=== PATIENT | male | born 1945 | race Caucasian/White ===

== ENCOUNTER → 2017-08-18 | Outpatient (CLI) | payer MEDICARE, OTHER ==
[~2017-08-18] MED LIST: REGADENOSON 0.4 MG/5 ML SYG ONE
--- NOTE | 2017-08-18 12:08 | CARRPT ---
DATE OF PROCEDURE: 08/18/2017 REASON FOR STRESS TESTING: Chest pain, assess for ischemia. BASELINE VITAL SIGNS AND ELECTROCARDIOGRAM: Pulse 67, blood pressure of 16o/69. Electrocardiogram is a normal sinus rhythm, rate of 67, normal axis, normal intervals, no significant ST or T-wave abn ormalities. PROCEDURE: The patient underwent standard Lexiscan infusion for 10 seconds followed by radiotracer. The patient's test was stopped due to completion of protocol. Maximal achieved blood pressure dur ing the test 122/68. Maximum heart rate during the test 91. ELECTROCARDIOGRAM FINDINGS: The patient did not develop any new Lexiscan-induced ST or T-wave alvares es from baseline abnormalities. No documented PVCs. SYMPTOMS: The patient had complaints of slight chest pain during stress which resolved in recovery. IMPRESSION: 1. No Lexiscan-induced ST or T-wave changes from baseline abnormalities diagnostic for ischemia. 2. No complaints of shortness of shortness breath during stress testing. Positive chest pain which resolved during recovery. 3. No documented premature ventricular contractions during stress. 4. Report of nuclear images to follow in separate dictation. Dictated By: YAMILA COHEN/JORGE Conf#: [id number] DID#: [id number]
--- NOTE | 2017-08-18 14:37 | RADRPT ---
PROCEDURE: Nuclear medicine myocardial stress and rest scan. CLINICAL INDICATION: Chest pain. TECHNIQUE: The patient was stressed with 0.4 mg IV Lexiscan. 10.6 mCi technetium 99m Tetrofosmin (Myoview) was administered rest. 31.2 mCi technetium 99m Tetrofosmin (Myoview) was administered du ring stress. Images were obtained and reconstructed in the short axis, horizontal long axis, and ve rtical long axis. Gated images were obtained and ejection fraction was calculated. COMPARISON: No prior study is available for comparison. FINDINGS: The stress and rest images demonstrate normal uptake throughout. There is no fixed abnormality or r eversible abnormality. There is no evidence of transient ischemic dilatation. Wall motion is normal. There is normal wall thickening during systole. Ejection fraction at stress is 67%. IMPRESSION: 1. No evidence of stress induced myocardial ischemia. 2. Ejection fraction at stress is 67%. RPTAT: QQ .Magdiel Cat MD, MD Date Time Electronically viewed and signed by .Magdiel Cat MD, on 08/18/2017 14:37 .R/
--- NOTE | 2017-08-18 20:02 | RADRPT ---
Echocardiogram Report Patient Name: PATRICK CHILDERS Gender: Male Date: 1945 Study Date: 18-Aug-2017 Lav Crewman: Erica [facility] Location: EKG Ref. Physician: YAMILA STEARNS Quality: Technically Difficult Study Procedures: Transthoracic echocardiogram with complete 2D, M-Mode, and doppler examination. Indications: Chest Pain. 2D/M Mode Doppler Measurement Value Normal Ranges Measurement Value Normal Ranges LVIDd 2D 3.8 3.5 - 5.6 cm AV Peak Brody 0.9 m/sec LVIDs 2D 2.7 2.1 - 4.1 cm AV Peak PG 3.6 mmHg LVPWd 2D 1.2 0.6 - 1.1 cm LVOT Peak Brody 0.8 m/sec IVSd 2D 1.3 0.6 - 1.1 cm LVOT Peak PG 2.8 mmHg AoR Diam 2D 2.7 2.0 - 3.7 cm MV E Peak Brody 0.4 m/sec EDV 2D 60.7 cm3 MV A Peak Brody 0.7 m/sec ESV 2D 19.9 cm3 MV E/A 0.6 MV Decel Time 249 msec MV Decel Kimble 2 MV E/A 0.6 Findings Left Ventricle: Normal left ventricular systolic function. Normal left ventricular cavity size. Mild concentric left ventricular hypertrophy. Ejection fraction is visually estimated at 55 %. Tissue Doppler/Mitral Doppler indices are consistent with impaired relaxation (Stage I diastolic dysfunction). Right Ventricle: Normal right ventricular size. Normal right ventricular systolic function. Left Atrium: The left atrium is normal in size. Right Atrium: The right atrium is normal in size. Mitral Valve: Mitral valve is not well visualized. Mild mitral leaflet calcification. Mild mitral annular calcification. Mild mitral valve regurgitation. Aortic Valve: Aortic valve not well visualized. Trace aortic valve regurgitation. Tricuspid Valve: Tricuspid valve not well visualized. Unable to obtain RVSP due to minimal presence of tricuspid regurgitation. There is trace tricuspid regurgitation. Pericardium: Normal pericardium with no significant pericardial effusion. Aorta: Normal aortic root. IVC: Normal size and normal respiratory collapse consistent with normal right atrial pressure. Conclusions 1.Normal left ventricular systolic function. Normal left ventricular cavity size. Mild concentric left ventricular hypertrophy. Ejection fraction is visually estimated at 55 %. Tissue Doppler/Mitral Doppler indices are consistent with impaired relaxation (Stage I diastolic dysfunction). 2.Mitral valve is not well visualized. Mild mitral leaflet calcification. Mild mitral annular calcification. Mild mitral valve regurgitation. 3.Aortic valve not well visualized. Trace aortic valve regurgitation. No significant gradient noted across the aortic valve. 4.Tricuspid valve not well visualized. Unable to obtain RVSP due to minimal presence of tricuspid regurgitation. There is trace tricuspid regurgitation. Electronically Signed By: Yamila Stearns 18-Aug-2017 20:02:16 -0700 Patient Name: PATRICK CHILDERS Study Date: 18-Aug-2017 [id number]
== END | disposition home or self-care (01) ==
LOC: EKG 08:03
PROVIDERS: ATTEND Internal Medicine
DX: R07.9 Chest pain, unspecified (principal)
CPT/HCPCS: 78452; 93017; 93306; A9500; A9505; J2785

== ENCOUNTER → 2018-07-31 | Outpatient (CLI) | END | disposition home or self-care (01) ==

== ENCOUNTER → 2018-12-23 | Outpatient (CLI) | payer MEDICARE, OTHER ==
--- NOTE | 2018-12-23 18:45 | CARRPT ---
DATE OF PROCEDURE: 12/23/2018 REASON FOR STRESS TEST: Chest pain, assess for ischemia. BASELINE VITAL SIGNS AND ELECTROCARDIOGRAM: Pulse 79, blood pressure 147/81. Electrocardiogram was normal sinus rhythm at 73, normal axis, normal intervals. T-wave inversion inferior leads borderline for ____. PROCEDURE: The patient underwent standard Lexiscan infusion protocol over 10 seconds followed by rad iolabeled tracer. The patient's test was stopped to complete the protocol. Maximal achieved blood p ressure in the test 151/79. Maximum heart rate during the test 99. ELECTROCARDIOGRAM FINDINGS: The patient did not develop any new Lexiscan-induced ST or T-wave change s from baseline abnormalities. No documented PVCs. SYMPTOMS: The patient had no complaints of chest pain or shortness breath during stress testing. IMPRESSION: 1. No Lexiscan-induced ST or T-wave changes from baseline diagnostic of cardiac ischemia. 2. No complaints of chest pain or shortness of breath during stress test. 3. No documented premature ventricular contractions during stress test. 4. Report of nuclear images to follow in separate dictation. Dictated By: YAMILA COHEN/JORGE Conf#: [id number] DID#: [id number]
--- NOTE | 2018-12-23 18:55 | RADRPT ---
Echocardiogram Report Patient Name: Irina CHILDERSent ID: [id number] : 1945 (73y 8m)Study Date: 12/23/2018 9:23:02 AM Gender: MAccession #: [id number] Tech: Luc Rodriguez RDCS Location: EKG Ref.Physician: GUSTAVO COLON Height(Cm): BSA: Weight(Kg): Quality: Technically Difficult StudyAccount #: Procedures: Echocardiographic Report: Transthoracic echocardiogram with complete 2D, M-Mode, and doppler examination. Indications: Chest Pain, and Hypertension. Measurements: 2D/M Mode Doppler Measurement Value Normal Range Measurement Value Normal Range LVIDd 2D 4.1 [ 4.2 - 5.8 ] cm AV Peak Brody 1.2 [ 100.0 - 170.0 ] cm/sec LVIDs 2D 2.3 [ 2.5 - 4.0 ] cm AV Peak PG 6.0 [ 2.0 - 9.0 ] mmHg LVPWd 2D 1.3 [ 0.6 - 1.0 ] cm LVOT Peak Brody 1.0 [ 70.0 - 110.0 ] cm/sec IVSd 2D 1.3 [ 0.6 - 1.0 ] cm LVOT Peak PG 4.0 [ 2.0 - 6.0 ] mmHg AoR Diam 2D 3.0 [ 2.6 - 3.4 ] cm MV E Peak Brody 0.6 [ 60.0 - 130.0 ] cm/sec EDV 2D 73.4 [ 62.0 - 150.0 ] ml MV A Peak Brody 0.9 [ 100.0 - 120.0 ] cm/sec ESV 2D 18.5 [ 21.0 - 61.0 ] ml MV E/A 0.7 [ 0.8 - 1.5 ] ratio EF 2D 74.8 [ 52.0 - 72.0 ] percent MV Decel Time 201 [ 104 - 258 ] msec LA Dimen 2D 2.7 [ 3.0 - 4.0 ] cm MV E/A 0.7 [ 0.8 - 1.5 ] ratio Findings: Left Ventricle: Normal left ventricular systolic function. Normal left ventricular cavity size. Mild concentric left ventricular hypertrophy. Ejection fraction is visually estimated at 55-60 %. Right Ventricle: Normal right ventricular size. Normal right ventricular systolic function. Left Atrium: The left atrium is normal in size. Right Atrium: The right atrium is normal in size. Mitral Valve: Mitral valve leaflets appear mildly thickened. Mild mitral annular calcification. Trace mitral regurgitation. Aortic Valve: Normal appearance of the aortic valve. No significant aortic stenosis or insufficiency. Tricuspid Valve: Normal appearance of the tricuspid valve. Unable to obtain RVSP due to minimal presence of tricuspid regurgitation. Pulmonic Valve: Normal pulmonic valve appearance. Pericardium: Normal pericardium with no significant pericardial effusion. Aorta: Normal aortic root. IVC: Normal size and normal respiratory collapse consistent with normal right atrial pressure. Conclusions: Normal left ventricular systolic function. Normal left ventricular cavity size. Mild concentric left ventricular hypertrophy. Ejection fraction is visually estimated at 55-60 %. Mitral valve leaflets appear mildly thickened. Mild mitral annular calcification. Trace mitral regurgitation. Normal appearance of the tricuspid valve. Unable to obtain RVSP due to minimal presence of tricuspid regurgitation. Electronically Signed By: Chan Stearns 2018-12-23 18:55:22 PST
== END | disposition home or self-care (01) ==
LOC: EKG 08:42
PROVIDERS: ATTEND Clinical Nurse Specialist Adult Health
DX: R07.9 Chest pain, unspecified (principal); I10 Essential (primary) hypertension
CPT/HCPCS: 78452; 93017; 93306; A9500; A9505; J2785